=== PATIENT | female | born 1995 | race Caucasian/White ===

== ENCOUNTER 2019-01-20 18:26 | Observation (INO) ==
[2019-01-20] MEDS: Pantoprazole 40 MG VIAL IVP SCH (22:01)
[2019-01-20] MEDS: Ringers Solution, Lactated 1,000 ML IVC SCH (22:01)
--- NOTE | 2019-01-20 22:17 | Internal Med History&Physical ---
Date of Encounter: 01/20/19 Time of Encounter: 22:17 Internal Medicine - H&P: HPI Chief complaint: anemia Admitted From: Home Plans for Post Hospital Care: Home History of present illness: Sharon Calvillo is a 23 year old woman who denies any past medical history who presented to [facility] emergency room with a complaint of 2 days of abdominal pain which she localizes to her epigastrium and right upper quadrant and right flank. She denies associated nausea, vomiting, fever or chills. No coughing, chest pain or dysuria. Over there she had a CT of her abdomen which was grossly unremarkable other than bilateral nonobstructive kidney stones. Blood work revealed a hemoglobin of 6.0 and stool testing was positive for blood. She was started on 1 unit of PRBC and was transferred here for further care. On arrival she reports feeling well and just as she is hungry. She does state that she was told she was anemic about a year ago and occasionally take wqvk-axv-txyuomk iron supplements but denies teagan blood in her stool or even darkening of her depositions. She has never received a blood transfusion before. She denies any allergies. Family history is negative for early onset GI malignancy. Vitals: Reviewed General: Well-appearing young female lying in bed in no acute distress. Skin: Warm and supple. HEENT: Moist mucous membranes. No conjunctivae pallor. Neck: No lymphadenopathy. No JVD. No carotid bruits. No palpable thyroid. Chest: Normal thoracic expansion. Normal breath sounds. Clear to auscultation. Heart: Normal S1 & S2; rhythmic. No rubs or murmurs. Abdomen: Non-distended, soft and non-tender to palpation. No peritoneal reaction. Extremities: No clubbing, cyanosis or edema. No calf tenderness. Normal distal pulses. Neurological: Awake, alert and oriented to person, place and time. No focal deficits. Psych: Affect appropriate. Assessment/Plan 1. Blood loss anemia secondary to GI bleed: Has received 1U pRBC. Will recheck H/H tonight and later in the morning to assess stability. Will perform iron studies as well. 2. GI bleed: No clearly identified etiology. Will undergo endoscopic evaluation in the morning. Will send celiac panel. GI consulted and prep orders are in. Start PPI BID. 3. Depression: Will resume antidepressants once reconciled. 4. DVT prophylaxis: Mechanical. Past Med Surg Social Fam HX - Past Medical History Medical history: no medical history - Past Surgical History Additional surgical history: Oral Surgery - Social History Smoking Status: Never smoker Smokeless Tobacco Status: No Alcohol use: none Internal Medicine - H&P: Meds Allergy/AdvReac Type Severity Reaction Status Date / Time No Known Allergies Allergy Verified 01/20/19 21:09 All Systems PM: A 10-system review of systems was performed and is negative for pertinent findings except as documented above in the HPI. - Constitutional Vitals: Temp Pulse Resp BP Pulse Ox 98.5 F 65 16 117/67 98 01/20/19 21:18 01/20/19 21:18 01/20/19 21:18 01/20/19 21:18 01/20/19 21:18 Exam: . - Time Spent With Patient Total time spent is greater than 50% in coordination of care (as documented) at patient's floor/unit and/or counseling patient: Greater than 35 minutes
[2019-01-20 22:39] LABS: Basophils # 0.1 K/mcL (0.0-0.2); Basophils % 0.6 %; Eosinophils # 0.2 K/mcL (0.0-0.6); Hematocrit 31.2 % (35.3-44.9); Hemoglobin 9.5 g/dL (11.5-15.4); Immature Granulocytes % 0.1 % (0-4); Lymphocytes # 2.3 K/mcL (0.6-4.6); Lymphocytes % 23.7 %; Mean Corpuscular HGB Conc 30.4 g/dL (31.6-35.5); Mean Corpuscular Hemoglobin 22.9 pg (28.0-33.3); Mean Corpuscular Volume 75.2 fL (83.0-100.0); Monocytes # 0.9 K/mcL (0.0-1.3); Monocytes % 9.3 %; Neutrophils # 6.1 K/mcL (1.6-8.9); Platelet Count 407 K/mcL (140-400); Red Blood Count 4.15 M/mcL (3.82-4.97); Red Cell Distribution Width 17.9 % (11.5-14.5); Segmented Neutrophils % 64.3 %; White Blood Count 9.6 K/mcL (4.3-11.1)
[2019-01-20 22:46] LABS: INR 1.1; Prothrombin Time 12.5 Seconds (9.4-12.1)
[2019-01-20 22:59] LABS: Alanine Aminotransferase 15 Units/L (7-52); Albumin 4.3 g/dL (3.5-5.7); Albumin/Globulin Ratio 2.2 (1.1-2.2); Alkaline Phosphatase 38 Units/L (34-104); Aspartate Amino Transferase 16 Units/L (13-39); BUN/Creatinine Ratio 21 (6-26); Bilirubin,Direct 0.5 mg/dL (0.0-0.2); Bilirubin,Total 2.5 mg/dL (0.3-1.0); Blood Urea Nitrogen 14 mg/dL (6-20); Calcium 8.9 mg/dL (8.6-10.3); Carbon Dioxide 19 mEq/L (23-29); Chloride 109 mEq/L (98-107); Glucose 104 mg/dL (70-105); Osmolality,Calculated 289 (280-300); Potassium 3.3 mEq/L (3.5-5.1); Sodium 139 mEq/L (136-145); Total Protein 6.3 g/dL (6.4-8.9); eGFR For African Americans > 60 (> 60); eGFR For Non-African Americans > 60 (> 60)
[2019-01-20 23:00] LABS: % Iron Saturation 85 % (15-50); Iron 389 mcg/dL (50-170); Transferrin 325 mg/dL (203-362)
[2019-01-20 23:19] LABS: Ferritin < 8 ng/mL (10-120)
[2019-01-21] MEDS ORDERED: Potassium Chloride Elixir 20 MEQ/15 ML UDC PO ONE (01:56)
[2019-01-21] MEDS: Ringers Solution, Lactated 1,000 ML IVC SCH (04:56)
[2019-01-21] MEDS: Pantoprazole 40 MG VIAL IVP SCH (04:58)
[2019-01-21 05:06] LABS: Hematocrit 29.9 % (35.3-44.9)
[2019-01-21 05:30] LABS: BUN/Creatinine Ratio 15 (6-26); Blood Urea Nitrogen 11 mg/dL (6-20); Calcium 8.9 mg/dL (8.6-10.3); Carbon Dioxide 19 mEq/L (23-29); Chloride 111 mEq/L (98-107); Glucose 122 mg/dL (70-105); Magnesium 1.9 mg/dL (1.6-2.6); Osmolality,Calculated 291 (280-300); Potassium 4.2 mEq/L (3.5-5.1); Sodium 140 mEq/L (136-145); eGFR For African Americans > 60 (> 60); eGFR For Non-African Americans > 60 (> 60)
--- NOTE | 2019-01-21 10:26 | Internal Med Progress Note ---
Hospitalist Progress Note - Encounter Date of Encounter: 01/21/19 Time of Encounter: 08:22 - Subjective Interval History: Patient seen and examined this morning at bedside. No acute overnight events. Patient's pain much improved. Currently getting bowel prep for colonoscopy. Denies any nausea vomiting. - Exam Vitals: Temp Pulse Resp BP Pulse Ox 98.1 F 63 16 96/56 100 01/21/19 06:53 01/21/19 06:53 01/21/19 06:53 01/21/19 06:53 01/21/19 06:53 Exam: General: In no acute distress. Pale in appearance Respiratory exam: CTAB. no accessory muscle use, rales, rhonchi, wheezes Cardiovascular exam: RRR, +S1, +S2. no murmur, gallop, rubs. GI/Abdominal exam: Non-tender, Non-distended, normal bowel sounds, soft, no peritoneal signs. Extremities exam: no pedal edema, pulses palpable in b/l lower extremities. no calf tenderness Neurological exam: CN II-XII intact, AO X3, no focal deficits. Skin exam: No skin rash - Summary of Assessment and Plan Summary of Assessment and Plan: Assessment Acute Abdominal Pain Positive stool occult Severe anemia Hypokalmia-resolved Chronic Depression Plan - Severe anemia possibly from GI bleed. s/p PRBC and Hb on 9 . Plan for EGD and colonoscopy today. c/w IVF and IV PPI for now. GI following. f/u celiac panel. - Iron panel wtih ferritin of <8. Likely has iron deficiency anemia. - will resume antidepressants after procedure and once confirmed. - Time Spent with Patient Total time spent is greater than 50% in coordination of care (as documented) at patient's floor/unit and/or counseling patient: Internal Medicine: Result - Labs CBC & Chem 7: 01/21/19 04:51 01/21/19 04:51 Labs: Short CBC 01/20/19 01/21/19 Range/Units 22:16 04:51 WBC 9.6 (4.3-11.1) K/mcL Hgb 9.5 L 9.0 L (11.5-15.4) g/dL Hct 31.2 L 29.9 L (35.3-44.9) % Plt Count 407 H (140-400) K/mcL Neutrophils # 6.1 (1.6-8.9) K/mcL BMP 01/20/19 01/21/19 22:16 04:51 Sodium 139 140 Potassium 3.3 L 4.2 D Chloride 109 H 111 H Carbon Dioxide 19 L 19 L BUN 14 11 Creatinine 0.68 0.75 Glucose 104 122 H Calcium 8.9 8.9 Liver Function 01/20/19 Range/Units 22:16 Total Bilirubin 2.5 H (0.3-1.0) mg/dL Direct Bilirubin 0.5 H (0.0-0.2) mg/dL AST 16 (13-39) Units/L ALT 15 (7-52) Units/L Alkaline Phosphatase 38 (34-104) Units/L Albumin 4.3 (3.5-5.7) g/dL - ABG Interpretation ABG results: PT/INR, D-dimer PT 12.5 Seconds (9.4-12.1) H 01/20/19 22:16 Consult Discharge Plan - Plan Referrals: Chloe Beaver, BENIGNO [Primary Care Provider] -
[2019-01-21] MEDS ORDERED: Propofol 500 MG/50 ML INFUS..BTL ONE (12:01)
[2019-01-21] MEDS ORDERED: Lidocaine -MPF 2% 2 ML VIAL ONE (12:02)
--- NOTE | 2019-01-21 12:32 | Anesthesia Evaluation PreOp ---
Date of Encounter: 01/21/19 Time of Encounter: 12:31 - Past History Planned Operation: EGD/Colon Cardiac History: Denies any Significant Hx Pulmonary History: Denies Any Significant HX [facility] History: Denies Any Significant HX, Other (Anxiety/Depression,) Other Medical History: Denies Any Significant HX Anesthesia History: No Prior Anesthetic Complications, Past Anesthesia ([place] teeth) Alcohol Use: none Medications and Allergies Allergy/AdvReac Type Severity Reaction Status Date / Time No Known Allergies Allergy Verified 01/20/19 21:09 - Meds/Allergy Pre-op Review Medications Reviewed: Yes Allergies Reviewed: Yes Beta Blockers on Current Med List: No Anesthesia Results - Labs 01/21/19 04:51 01/21/19 04:51 Laboratory Results 01/21/19 01/21/19 01/21/19 04:51 04:51 05:40 Hgb 9.0 L Hct 29.9 L Sodium 140 Potassium 4.2 D Chloride 111 H Carbon Dioxide 19 L BUN 11 Creatinine 0.75 Est GFR ( Amer) > 60 Est GFR (Non-Af Amer) > 60 BUN/Creatinine Ratio 15 Glucose 122 H POC Glucose 99 Calculated Osmolality 291 Calcium 8.9 Magnesium 1.9 Anesthesia Exam Vital Signs Temp Pulse Resp BP Pulse Ox 01/21/19 12:23 98.2 F 69 16 102/64 100 01/21/19 08:15 100 01/21/19 06:53 98.1 F 63 16 96/56 100 01/21/19 04:13 98.3 F 83 14 105/62 98 01/20/19 23:55 98.2 F 88 14 92/56 98 01/20/19 21:18 98.5 F 65 16 117/67 98 01/20/19 20:56 98.3 F 75 16 96/57 100 Intake and Output 01/20/19 01/21/19 01/21/19 23:59 07:59 15:59 Intake Total 0 / 0 1000 / 1000 Output Total 0 / 0 Balance 0 / 0 1000 / 1000 Intake: IV Fluids 1000 / 1000 Lactated Ringers 1,000 ML @ 125 1000 / 1000 mls/hr IVC .Q8H MICHELLE Rx#: [id number] Oral 0 / 0 0 / 0 Output: Urine 0 / 0 Other: Meal NPO # Voids 2 3 Weight 47.174 kg Blood Glucose* 99 85 Height: 4'9" Weight: 104# bmi = 22.5 NPO (# of Hours): MNoc - HEENT Pupil (Motor): EOMI Mallampati: II Teeth: Normal Oral Opening: Greater than 3 - [facility] LOC: Oriented [facility] Motor: Normal RUE, Normal LUE, Normal RLE, Normal LLE, Normal Face [facility] Sensory: Normal: RUE, LUE, RLE, LLE, Face - Cardiac Rhythm: Regular Murmur: None - Pulmonary Breath Sounds: bilateral Clear Respiratory Effort: Symmetrical Anesthesia Assess/Plan ASA Score: 2 Level of consciousness: Cooperative, Oriented, Tranquil Anesthetic Plan: MAC Reason for No Neuroaxial/Regional Block: Patient refusal Monitoring Plan: Standard Monitors Recovery Plan: PACU Anes Supervising Prov Stmt: Pt seen/evaluated, R&B discussed, questions answered and consent obtained. Jose G Rosales MD
[2019-01-21 13:25] VITALS: BP 113/62
--- NOTE | 2019-01-21 14:49 | Gastroenterology Consult Note ---
Date of Encounter: 01/21/19 Time of Encounter: 11:15 - Assessment and plan (1) GI bleed Current Visit: Yes Status: Acute Assessment and plan: Patient presented to [facility] ED with Hgb 6, positive FOBT, and transfused 1 u PRBC. Plan for EGD and colonoscopy today. Keep NPO for scopes. Continue PPI. Qualifiers: GI bleed type/associated pathology: unspecified gastrointestinal hemorrhage type Qualified Code(s): K92.2 - Gastrointestinal hemorrhage, unspecified (2) Anemia Current Visit: Yes Status: Acute Assessment and plan: Hgb 6 at [facility] and 9.5 on arrival here. Today Hgb 9. Continue to monitor CBC and transfuse PRBC as needed. Iron 389, ferritin <8. Plan for EGD and colonoscopy today. Qualifiers: Anemia type: unspecified type Qualified Code(s): D64.9 - Anemia, unspecified - Time Spent With Patient Total time spent is greater than 50% in coordination of care (as documented) at patient's floor/unit and/or counseling patient: GI History of Present Illness - Data of Consult Patient: new to practice Consult date: 01/21/19 Requesting Physician: Sonali Pradhan - Consult Narrative Reason for consult: GI bleed, anemia History of present illness: Ms. Calvillo is a 23 year old female with no PMHx who presented to [facility] ED with 2 days of right upper quadrant and epigastric abdominal pain. CT completed at [facility] was unremarkable. Hgb on arrival to [facility] was 6, fecal occult blood test was positive, patient was transfused one unit PRBC and transferred here for further evaluation. Patient denies any melena or hematochezia. She denies fever, chills, chest pain, shortness of breath, nausea, vomiting. On arrival to [place] Hgb 9.5 and today Hgb 9. Procedures: None NSAIDs: None Anticoagulation: None Past Med Surg Social Fam HX - Past Medical History Medical history: no medical history - Past Surgical History Additional surgical history: Oral Surgery - Social History Smoking Status: Never smoker Smokeless Tobacco Status: No Alcohol use: none - Gastrointestinal Gastrointestinal: Present: as per HPI - Constitutional Constitutional: as per HPI - EENT Eyes: as per HPI Ears: Present: as per HPI Nose, mouth and throat: Present: as per HPI - Cardiovascular Cardiovascular ROS: Present: as per HPI - Respiratory Respiratory IM: Present: as per HPI - Genitourinary Genitourinary: Absent: change in color, Urinary frequency - Neurological ROS Neurological GI: Present: as per HPI - Hematologic/Lymphatic Hematologic/Lymphatic pediatric: Present: as per HPI - Musculoskeletal Musculoskeletal ROS GI: Present: as per HPI - Integumentary Integumentary GI: Present: as per HPI - Psychiatric ROS Psychiatric GI: Present: as per HPI - Endocrine Endocrine IM: Present: as per HPI - Constitutional Vitals: Temp Pulse Resp BP Pulse Ox 98.3 F 94 20 113/62 100 01/21/19 13:16 01/21/19 13:16 01/21/19 13:16 01/21/19 13:16 01/21/19 13:16 General appearance: Present: cooperative, A&O X 3, no acute distress, answers questions appropriately - Head Head exam: Present: atraumatic, normocephalic - Eye Eye exam: Present: normal appearance, sclera anicteric - ENT ENT exam: Present: mucous membranes dry - Neck Neck exam general surgery: Present: normal inspection, trachea midline - Respiratory Respiratory exam: Present: CTAB. Absent: rales, rhonchi, wheezes - Cardiovascular Cardiovascular exam: Present: RRR, +S1, +S2 - GI/Abdominal GI/Abdominal exam: Present: soft, tenderness (epigastric), no peritoneal signs. Absent: distended, firm, guarding - Rectal Rectal exam: Present: deferred - Extremities Exam Extremities exam: Present: warm - Neurological Exam Neurological exam: Present: no focal deficits - Psychiatric Psychiatric exam: Present: normal affect, normal mood - Skin Skin exam: Present: dry, intact, normal color, warm Results - Labs CBC & Chem 7: 01/21/19 04:51 01/21/19 04:51 Labs: Last Result 01/21/19 04:51 Calcium 8.9 Entire Visit 01/21/19 04:51 Hgb 9.0 L Hct 29.9 L - ABG ABG results: PT/INR, D-dimer PT 12.5 Seconds (9.4-12.1) H 01/20/19 22:16 Consult Discharge Plan - Plan Referrals: Chloe Beaver, TACK WELDER [Primary Care Provider] -
--- NOTE | 2019-01-21 17:12 | Discharge Summary ---
- NOTES TO OUTPATIENT PROVIDER Notes to Outpatient Provider: Patient will need to follow up with gastroenterology in 1-2 weeks for outpatient capsule endoscopy. Will need follow-up H&H in 1-2 weeks. Discharged with stool softener and iron pills. Orders not resulted at time of discharge: Pending orders 01/20/19 22:16 Celiac Disease Reflex [place] Stat 01/21/19 13:38 Surgical Pathology [PTH] Routine 01/21/19 13:49 Surgical Pathology [PTH] Routine Date of Encounter: 01/21/19 Time of Encounter: 17:07 - Discharge Diagnosis (1) Hypokalemia Priority: Primary Status: Acute (2) Anemia Priority: Primary Status: Acute Qualifiers: Anemia type: unspecified type Qualified Code(s): D64.9 - Anemia, unspecified (3) GI bleed Priority: Primary Status: Acute Qualifiers: GI bleed type/associated pathology: unspecified gastrointestinal hemorrhage type Qualified Code(s): K92.2 - Gastrointestinal hemorrhage, unspecified (4) Gastritis Priority: Primary Status: Acute Qualifiers: Chronicity: unspecified Gastritis bleeding: without bleeding Qualified Code(s): K29.70 - Gastritis, unspecified, without bleeding (5) Esophagitis determined by endoscopy Priority: Primary Status: Acute Hospital course: Ms. Calvillo is a 23 year old female with no significant past medical history came in from [facility] because of severe anemia with hemoglobin of 6 and associated abdominal pain. Patient stool occult was positive. Patient received 1 unit of PRBC and was subsequently transferred here for further care. Patient has known anemia and was taking vnsr-kra-klysjtx iron supplements on and off. She was started on PPI twice a day. Patient was seen by gastroenterology and had EGD and colonoscopy. EGD showed gastritis and esophagitis. Colonoscopy was unremarkable except nonradiating internal hemorrhoids. Patient was otherwise doing fine and is continuing home. Discussed case with gastroenterology was okay to discharge the patient on iron supplementation and stool softeners. Patient may need outpatient capsule endoscopy with gastroenterology follow-up as outpatient. Discharge discussed with: patient, nurse, social work, beverage sales consultant - Time Spent with Patient Total time spent providing and/or coordinating discharge services: Time spent: Greater than 30 minutes (40) - Discharge Medications Prescriptions: New Docusate [Colace] 100 mg PO BID PRN 30 Days #60 capsule PRN Reason: Constipation Ferrous Sulfate 325 mg PO TIDWM 30 Days #90 tablet Home Medications: BuPROPion SR (12 HR) [Wellbutrin SR] 150 mg PO BID 01/21/19 [History] Buspirone HCl [Buspar] 5 mg PO Q12H 01/21/19 [History] Docusate [Colace] 100 mg PO BID PRN 30 Days #60 capsule 01/21/19 [Rx] Ferrous Sulfate 325 mg PO TIDWM 30 Days #90 tablet 01/21/19 [Rx] Allergies/Adverse Reactions: Allergy/AdvReac Type Severity Reaction Status Date / Time No Known Allergies Allergy Verified 01/21/19 17:14 Date of admission: 01/20/19 20:35 Primary care physician: Chloe Beaver Consults: 01/20/19 21:15 Consult to Gastroenterology [CONS] Routine Consulting Provider: Gastroenterology Anushka Reason for Consult: GI bleed with blood loss anemia Call Completed: Yes Discharging clinician: Melissa Gomez Constitutional Vitals: Temp Pulse Resp BP Pulse Ox 98.3 F 94 20 113/62 100 01/21/19 13:16 01/21/19 13:16 01/21/19 13:16 01/21/19 13:16 01/21/19 13:16 Exam: General: In no acute distress. Pale in appearance Respiratory exam: CTAB. no accessory muscle use, rales, rhonchi, wheezes Cardiovascular exam: RRR, +S1, +S2. no murmur, gallop, rubs. GI/Abdominal exam: Non-tender, Non-distended, normal bowel sounds, soft, no peritoneal signs. Extremities exam: no pedal edema, pulses palpable in b/l lower extremities. no calf tenderness Neurological exam: CN II-XII intact, AO X3, no focal deficits. Skin exam: No skin rash - Patient Status Disposition: Home, Self-Care Condition: Fair - Discharge Instructions Follow Up With: Johnathan Reece MD [Partnered Physician] - Chloe Beaver, BENIGNO [Primary Care Provider] - - Diet and Activity Activity: increase activity as tolerated
[2019-01-23 15:18] LABS: Immunoglobulin A (CELIAC) 112 mg/dL (68-408)
[2019-01-24 10:47] LABS: Tissue Transglutaminase IgA 1 U/mL (0-3)
== END 2019-01-21 18:17 | disposition home or self-care (01) ==
LOC: 3ANU
PROVIDERS: ADMIT Internal Medicine Nephrology; ATTEND Internal Medicine Nephrology